=== PATIENT | female | born 1955 | race Caucasian/White ===

== ENCOUNTER 2025-05-18 09:18 | Emergency (ER) | payer BC, MEDICARE ==
[~2025-05-18] VITALS: Ht 170.2 cm; Wt 113.6 kg
[~2025-05-18 09:18] MED LIST: ALBU17AE27 PO; LEVO200 PO
[2025-05-18 09:21] VITALS: TEMP 98.1
[2025-05-18 09:40] VITALS: BP 154/98; PULSE 87; RESP 18; O2SAT 97
[2025-05-18] MEDS: OXYMETAZOLINE HCL 0.05% 15 ML NASAL SPRAY NASAL ONE (10:45)
[2025-05-18] MEDS: SULFACETAMIDE SODIUM 10% 15 ML OPHTHALMIC SOLUTION OU ONE (10:46)
[2025-05-18] MEDS: NAPHAZOLINE/PHENIR 0.025-0.3% 15 ML OPHTHALMIC SOLUTION OU ONE (10:46)
== END 2025-05-18 11:17 | disposition home or self-care (01) ==
LOC: EMS 09:18
DX: H10.13 Acute atopic conjunctivitis, bilateral (principal); H57.89 Other specified disorders of eye and adnexa; E03.9 Hypothyroidism, unspecified; E78.00 Pure hypercholesterolemia, unspecified; J45.909 Unspecified asthma, uncomplicated; K21.9 Gastro-esophageal reflux disease without esophagitis; R09.89 Other specified symptoms and signs involving the circulatory and respiratory systems; Z79.890 Hormone replacement therapy; Z88.0 Allergy status to penicillin; Z79.899 Other long term (current) drug therapy
CPT/HCPCS: 99284; Z7502; Z7610